=== PATIENT | female | born 1985 | race Caucasian/White ===

== ENCOUNTER 2018-07-11 05:14 | Inpatient (IN) ==
--- NOTE | 2018-06-12 14:12 | EKG Report ---
Test Performed on : 06/12/2018 1:49:15 PM Test Reason : PAT Blood Pressure : / mmHG Vent. Rate : 060 BPM Atrial Rate : 060 BPM P-R Int : 156 ms QRS Dur : 076 ms QT Int : 396 ms P-R-T Axes : 061 050 052 degrees QTc Int : 396 ms Normal sinus rhythm. Normal ECG When compared with ECG of 22-JUN-2017 07:36, Vent. rate has decreased BY 40 BPM Confirmed by Jorge PECK, García Booker ([id number]) on 06/12/2018 4:47:43 PM
[2018-06-12 14:26] LABS: BASO# 0.01 X1000 (0.0-0.2); BASO% 0.1 % (0.0-0.8); EOS# 0.06 X1000 (0.0-0.7); EOS% 0.8 % (0.0-10.0); HEMOGLOBIN 12.3 g/dL (12.0-16.0); LYMPH# 2.27 X1000 (1.2-3.4); LYMPH% 30.1 % (20.5-51.1); MCH 28.5 PG (27-31); MCHC 32.4 g/dL (33-37); MCV 88.2 FL (81-99); MONO# 0.54 X1000 (0.11-0.59); MONO% 7.2 % (1.7-9.3); MPV 10.5 FL (7.4-10.4); NEUT# 4.67 X1000 (1.4-6.5); NEUT% 61.8 % (42.2-75.2); PLT 257 X1000 (130-400); RBC 4.31 XMIL (4.2-5.4); RDW 12.7 % (11.5-14.5); WBC 7.55 X1000 (4.8-10.8)
[2018-06-12 14:33] LABS: AGAP 9; BUN 12 mg/dL (8-22); CALCIUM 9.4 mg/dL (8.8-10.2); CHLORIDE 104 mmol/L (98-107); COSMO 279; CREATININE 0.8 mg/dL (0.5-0.9); ESTIMATED GFR > 60; GLUCOSE 90 mg/dL (70-104); POTASSIUM 4.4 mmol/L (3.5-5.1); SODIUM 140 mmol/L (136-145); TCO2 27 mmol/L (25-35)
[2018-07-11] MEDS ORDERED: INVANZ 1 GM/NS 1 GM/50 ML IVPB ONE (05:52)
[2018-07-11] MEDS ORDERED: LR 1,000 ML ONE (05:52)
[2018-07-11] MEDS ORDERED: ENTEREG ONE (05:54)
[2018-07-11] MEDS ORDERED: DIPRIVAN 1% ONE (06:32)
[2018-07-11] MEDS ORDERED: TRANSDERM-SCOP ONE (06:36)
[2018-07-11] MEDS ORDERED: REGLAN ONE (06:36)
[2018-07-11] MEDS ORDERED: PEPCID ONE (06:36)
[2018-07-11] MEDS ORDERED: VALIUM ONE (06:37)
[2018-07-11] MEDS ORDERED: NORCURON ONE (06:58)
[2018-07-11] MEDS ORDERED: DECADRON ONE (07:16)
[2018-07-11] MEDS ORDERED: QUELICIN (DOSE) ONE (07:29)
[2018-07-11] MEDS ORDERED: ZOFRAN ONE (07:29)
[2018-07-11] MEDS ORDERED: XYLOCAINE-MPF 2% ONE (07:29)
[2018-07-11] MEDS ORDERED: OFIRMEV 1000 MG/ISOTONIC SOLN 1,000 MG/100 ML BOTTLE ONE (07:29)
[2018-07-11 07:34] LABS: URINE SOURCE CATH
[2018-07-11 07:41] LABS: BILIRUBIN URINE NEGATIVE (NEGATIVE); BLOOD URINE NEGATIVE (NEGATIVE); COLOR YELLOW; GLUCOSE URINE NEGATIVE (NEGATIVE); KETONE URINE NEGATIVE (NEGATIVE); LEUKOCYTES URINE NEGATIVE (NEGATIVE); NITRITE URINE NEGATIVE (NEGATIVE); PH URINE 5.5; PROTEIN URINE TRACE mg/dL (NEGATIVE); SP GRAVITY URINE 1.022; TURBIDITY URINE CLEAR (CLEAR); UROBILINOGEN URINE NORMAL (NORMAL)
[2018-07-11 07:42] LABS: UR EPITHELIAL CELLS <10 /HPF (<10); URINE BACTERIA NEGATIVE /HPF; URINE RBC <10 /HPF (<10); URINE WBC <10 /HPF (<10)
[2018-07-11] MEDS ORDERED: DILAUDID ONE (08:18)
[2018-07-11] MEDS ORDERED: NEOSTIGMINE ONE (08:33)
[2018-07-11] MEDS ORDERED: ROBINUL ONE (08:33)
--- NOTE | 2018-07-11 09:17 | OPERATIVE NOTE ---
PROCEDURE DATE: 07/11/2018 PROCEDURE: Total abdominal colectomy with ileocolostomy. SURGEON: Aj Felix MD. CALCULUS TUTOR: Cam Pastor MD PREOPERATIVE DIAGNOSIS: Chronic constipation. POSTOPERATIVE DIAGNOSIS: Chronic constipation. INDICATIONS: This is a 32-year-old who has a long history of chronic constipation requiring colonic lavage with a scope every few months to evacuate her colon and keep her bowels functional. She desires relief from this problem and was sent to me for operative intervention. The risks of the procedure and the ultimate outcome with looser stools was discussed with her. She understands and wanted to proceed. DESCRIPTION OF OPERATION: Satisfactory general endotracheal anesthesia was achieved. The abdomen was prepped and draped in a sterile fashion. A midline incision was made. Dissection was carried through the subcutaneous tissue through the midline fascia entering the abdominal cavity. A brief exploration revealed no obvious intra-abdominal pathology. We then began on the right side and mobilized the right colon, incising the white line of Toldt from the cecum up to the hepatic flexure. We then freed the hepatic flexure using the electrocautery. There were adhesions to the gallbladder fossa, but we took care to avoid any injury. We then the greater omentum from the transverse colon leaving it attached to the stomach and to the lesser sac. We then turned our attention to the sigmoid and again freed up the sigmoid along the white line of Toldt going from caudad to cephalad toward the splenic flexure. We then approached the splenic flexure from the descending colon as well as the transverse colon until the splenic flexure was freed from the splenocolic ligament. We decided that we would make our anastomosis in the distal sigmoid, leaving the rectum and most distal sigmoid intact. We turned our attention back to the ileum and divided it with a ESTVEAN 60 blue cartridge. We then proceeded to divide the mesentery of the colon from proximal to distal. When we reached the major vessels we clamped with Aline clamps, dividing and ligating them with 2-0 silk suture ligatures. We continued progressing from proximal to distal, until we reached the distal sigmoid. We preserved our sigmoid vessels to the colon. We took the stapled end of our ileum and oversewed the staple line with interrupted 3-0 silks. We then laid the ileum end to side to the back of the colon, placed our 3-0 silk seromuscular stitches for the posterior row 1st. We then amputated the colon, handed it off. We then opened the ileum to the same width of the colon. We then constructed our inner layer with a 3-0 Polysorb running locking stitch posteriorly, changing to a [place] stitch anteriorly, and then our final layer was interrupted 3-0 silks in a Lembert fashion. This thereby completed a two layer end-to-side ileocolostomy. We then changed gloves at this point. We proceeded to irrigate the abdominal cavity with warm saline. Hemostasis was satisfactory. We did close the mesentery with interrupted 3-0 silks in a Lembert fashion. We had a good opening to the anastomosis. Hemostasis was satisfactory. We returned the omentum over the small bowel. We then closed the peritoneum with 2-0 chromic running. We closed the fascia with a running #2 Prolene running. Subcutaneous tissue was irrigated out. Hemostasis was satisfactory. The skin was closed with neto. A sterile island dressing was applied. She tolerated it well, was sent to the recovery room in satisfactory condition. Blood loss was about 100 mL. cc: MD Ferny Sharma MD
[2018-07-11] MEDS ORDERED: D5 NS 1,000 ML ONE (09:26)
[2018-07-11] MEDS ORDERED: DILAUDID IV PRN (09:45)
[2018-07-11] MEDS: PERIDEX MT SCH ×2 (10:55→20:03)
[2018-07-11] MEDS: POTASSIUM CHLORIDE 10 MEQ in D5 NS 1,000 ML IV SCH ×2 (11:41→20:03)
[2018-07-11] MEDS: ZOFRAN IV PRN (14:22)
[2018-07-11] MEDS: OFIRMEV 1000 MG/ISOTONIC SOLN 1,000 MG/100 ML BOTTLE IV SCH ×2 (15:26→20:03)
[2018-07-11] MEDS: DILAUDID IV PRN ×2 (17:59→21:10)
[2018-07-11] MEDS: LOVENOX SUBQ SCH (20:03)
[2018-07-12] MEDS: DILAUDID IV PRN ×7 (00:23→23:09)
[2018-07-12] MEDS ORDERED: BENADRYL IV ONE (00:30)
--- NOTE | 2018-07-12 03:39 | GENERAL SURGERY PROGRESS NOTE ---
DATE: 07/11/2018 It is 4:30 in the afternoon. Ms. Aguilar complains primarily about her lower back. Her hemodynamics are okay. I discussed with her that it is okay to move around or sit up in order to give her back some relief. She understands that. We will check her labs in the morning if needed. cc: Aj Felix MD
[2018-07-12] MEDS: POTASSIUM CHLORIDE 10 MEQ in D5 NS 1,000 ML IV SCH ×2 (03:41→19:01)
[2018-07-12] MEDS: OFIRMEV 1000 MG/ISOTONIC SOLN 1,000 MG/100 ML BOTTLE IV SCH ×2 (03:41→08:49)
[2018-07-12] MEDS: BENADRYL IV PRN ×2 (05:58→23:08)
[2018-07-12 06:01] LABS: HEMATOCRIT 31.5 % (37.0-47.0); HEMOGLOBIN 10.3 g/dL (12.0-16.0); MCH 29.4 PG (27-31); MCHC 32.7 g/dL (33-37); MPV 10.7 FL (7.4-10.4); RBC 3.5 XMIL (4.2-5.4); RDW 12.5 % (11.5-14.5); WBC 11.73 X1000 (4.8-10.8)
[2018-07-12] MEDS: ENTEREG PO SCH ×2 (08:49→20:25)
[2018-07-12] MEDS: PERIDEX MT SCH ×2 (08:51→20:24)
--- NOTE | 2018-07-12 09:38 | GENERAL SURGERY PROGRESS NOTE ---
DATE: 07/12/2018 TIME: 0915 hours in the morning. SUBJECTIVE: Yulisa is postop day 1. She has a much happier demeanor this morning; she is smiling. Her pain relief appears adequate. She is afebrile, heart rate 59, blood pressure 93/58. Her bandage is dry. She denies any nausea. White count is 11,700, hemoglobin 10.3, hematocrit 31. ASSESSMENT: We will cut her intravenous rate down somewhat today. We will get her out of bed. We will continue with good pulmonary toilet. cc: Aj Felix MD
[2018-07-12] MEDS: LOVENOX SUBQ SCH (20:24)
[2018-07-13] MEDS: DILAUDID IV PRN ×6 (02:14→21:16)
[2018-07-13] MEDS ORDERED: POTASSIUM CHLORIDE 10 MEQ in D5 NS 1,000 ML IV SCH (08:30)
[2018-07-13] MEDS: POTASSIUM CHLORIDE 10 MEQ in D5 NS 1,000 ML IV SCH (08:53)
[2018-07-13] MEDS: PERIDEX MT SCH ×2 (08:53→21:21)
[2018-07-13] MEDS: ENTEREG PO SCH ×2 (08:53→21:16)
--- NOTE | 2018-07-13 09:16 | GENERAL SURGERY PROGRESS NOTE ---
DATE: 07/13/2018 TIME: 8:52 a.m. The patient is postop day 2. She is feeling better. Temperature is 99 degrees, heart rate 83, blood pressure 112/63. Bowel sounds are present. She denies any nausea. The plan will be to start her on clear liquids today. Will put her IV at KVO and remove her Salazar. cc: Aj Felix MD
[2018-07-13] MEDS: LOVENOX SUBQ SCH (21:16)
[2018-07-14] MEDS: DILAUDID IV PRN ×7 (00:35→20:38)
[2018-07-14] MEDS: ZOFRAN IV PRN ×2 (06:54→20:33)
[2018-07-14] MEDS ORDERED: SALINE LOCK IV FLUID XX ONE (09:22)
[2018-07-14] MEDS: ENTEREG PO SCH ×2 (09:25→20:34)
[2018-07-14] MEDS: PERIDEX MT SCH ×2 (09:25→20:39)
--- NOTE | 2018-07-14 14:27 | GENERAL SURGERY PROGRESS NOTE ---
DATE: 07/14/2018 Yulisa is afebrile. Heart rate is 71. Blood pressure is 114/70. She said she has had a couple of bowel movements. PLAN: Advance her to full liquids today. We will give her solid food tonight. Should be able to let her go home tomorrow, the 6th. cc: Aj Felix MD
[2018-07-14] MEDS: LOVENOX SUBQ SCH (20:34)
[2018-07-15] MEDS: DILAUDID IV PRN (00:22)
[2018-07-15] MEDS: ZOFRAN IV PRN (00:22)
[2018-07-15 04:47] VITALS: BP 103/58
--- NOTE | 2018-07-15 08:10 | GENERAL SURGERY PROGRESS NOTE ---
DATE: 07/15/2018 SUBJECTIVE: Yulisa is doing generally well. She is afebrile, heart rate 73, blood pressure 103/58. She took solid food and tolerated it well, had a little heartburn. Her bowels have continued to move some. Her wound looks fine. Plan is to discharge her home today. She is not to lift over 15 pounds. She will return to see me within a week for staple removal. Activity, wound care, and diet were discussed. cc: Aj Felix MD
--- NOTE | 2018-07-20 07:16 | DISCHARGE SUMMARY ---
ADMISSION DATE: 07/11/2018 DISCHARGE DATE: 07/15/2018 PRIMARY DISCHARGE DIAGNOSIS: Chronic constipation. PRIMARY PROCEDURE: Total abdominal colectomy with ileal colostomy. HISTORY: This is a 33-year-old, who has chronic constipation and has had intermittent colonoscopies to clear her colon. She has been sent for abdominal colectomy which she has agreed to have. HOSPITAL COURSE: She was prepped as an outpatient, brought in on the 2nd, and underwent the abdominal colectomy. Her postoperative course was rather uneventful. The second postoperative day she felt significantly better. She had some bowel sounds, and we started her on clear liquids. We reduced her IV to KVO and removed her Salazar catheter. She got up and was mobile. We did maintain her on Lovenox for prophylaxis against deep venous thrombosis. About 07/15, she was started on solid food. Her bowels had moved. Her wound was fine. She was mobile, and it was felt she could be discharged home. She was discharged on the with instructions to return to see me in a week for staple removal. cc: MD Dr. Jose Sharma
== END 2018-07-15 08:27 | disposition home or self-care (01) | DRG 331 ==
LOC: SURHOLD 05:14 → 4N 07:32
PROVIDERS: ADMIT Surgery; ATTEND Surgery
CPT/HCPCS: 80048; 81001; 85025; 85027; 86850; 86900; 86901; 88307; 93005; 93010; 94761; 94799; A9270; J0131; J0330; J1100; J1170; J1200; J1335; J1650; J2405; J3480; J7042; J7120